=== PATIENT | male | born 1955 | race Caucasian/White ===

== ENCOUNTER → 2022-10-21 13:15 | Outpatient (CLI) | payer MEDICARE, SELFPAY ==
--- NOTE | ~2022-10-21 | MR_ITS ---
EXAMINATION: MR knee LT wo con DATE: 10/21/2022 13:44 INDICATION: Left knee pain. TECHNIQUE: Magnetic resonance imaging (MRI) of the left knee was performed without intravenous contra st. Sequences included axial PD-weighted FS FSE, coronal PD-weighted FSE and PD-weighted FS FSE, sagi ttal PD-weighted FSE, and sagittal T2-weighted FS FSE. COMPARISON: None. FINDINGS: Medial compartment: There is a radial tear of medial meniscus at the junction of the body and posterior horn. There is sh allow partial-thickness cartilage loss of tibial condyle and femoral condyle. There is mild subchondr al edema-like marrow signal intensity of tibial condyle. Lateral compartment: Lateral meniscus is normal. There is cartilage surface irregularity of femoral condyle and tibial con dyle. Patellofemoral compartment: There is shallow partial-thickness cartilage loss of patellar medial and lateral facets. There is sha llow partial-thickness cartilage loss of trochlea with mild subchondral edema-like marrow signal inte nsity medially. Ligaments and tendons: The anterior and posterior cruciate ligaments are normal. There are changes of prior sprains of media l collateral ligament and fibular collateral ligament characterized by thickening and increased signa l intensity proximally. There is mild patellar tendinopathy. Fluid: There is a moderate-sized knee joint effusion. There is a small Almazan's cyst. There is diffuse edema in the fat about the knee. There is mild prepatellar and superficial infrapatellar bursitis. IMPRESSION: 1. Mild tricompartmental chondrosis. 2. Tear of medial meniscus. 3. Moderate-sized knee joint effusion. Reviewed, dictated and finalized at location A.
== END ==
PROVIDERS: Visit Provider Nurse Practitioner
DX: M25.462 Effusion, left knee (principal); S83.242A Other tear of medial meniscus, current injury, left knee, initial encounter; X58.XXXA Exposure to other specified factors, initial encounter
CPT/HCPCS: 73721

== ENCOUNTER → 2023-04-11 11:07 | Outpatient (CLI) | payer MEDICARE, SELFPAY ==
--- NOTE | ~2023-04-11 | CT_ITS ---
EXAMINATION: CT sinus wo con DATE: 04/11/2023 11:25 INDICATION: Acute maxillary sinusitis TECHNIQUE: Computed tomography (CT) of the paranasal sinuses was performed without intravenous contra st. The dose-length product (DLP) was 423.00 mGy-cm. Iterative reconstruction was used. COMPARISON: None FINDINGS: There is normal development and pneumatization of the paranasal sinuses. There is mild muco anjali thickening superolaterally in the right maxillary sinus. The frontal, sphenoid, ethmoid, and left maxillary sinuses are clear. The bilateral ostiomeatal complexes are patent. Visualized soft tissues are unremarkable. IMPRESSION: 1. Mild right maxillary mucosal thickening. Reviewed, dictated and finalized at location B. 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
== END ==
PROVIDERS: PCP Otolaryngology; Visit Provider Otolaryngology
DX: J01.00 Acute maxillary sinusitis, unspecified (principal)
CPT/HCPCS: 70486